=== PATIENT | female | born 1985 | race Caucasian/White ===

== ENCOUNTER 2016-10-19 17:02 | Emergency (ER) | payer BC, OTHER ==
[~2016-10-19] VITALS: Ht 162.6 cm; Wt 77.1 kg
[~2016-10-19 17:02] MED LIST: PHENERGAN 25 MG25 M1 PO; VICODIN 5-5001 EACH PO
[2016-10-19 17:32] LABS: URINE BILIRUBIN NEGATIVE (Negative); URINE BLOOD NEGATIVE (Negative); URINE COLOR YELLOW; URINE GLUCOSE-RANDOM* NEGATIVE (Negative); URINE KETONES NEGATIVE (Negative); URINE NITRITE NEGATIVE (Negative); URINE PROTEIN (DIPSTICK) NEGATIVE (Negative); URINE UROBILINOGEN 0.2 E.U./dl (0.2-1.0)
[2016-10-19 17:37] LABS: BACTERIA 1-9 Few /HPF (None Seen); SQUAMOUS 0-3 Few /LPF (0-3); URINE WBC 0-5 Rare /HPF (0-5)
[2016-10-19 17:38] LABS: CASTS None Seen /LPF (None Seen); CRYSTALS None Seen /LPF (None Seen); URINE RBC None Seen /HPF (0-2)
[2016-10-19 17:45] LABS: ABSOLUTE NEUTROPHILS 4.9 thou/uL (1.4-8.2); BASOPHILS 0.7 % (0.0-2.0); EOSINOPHILS 1.3 % (0.0-3.0); HEMATOCRIT 42.1 % (37.0-47.0); HEMOGLOBIN 14.4 gm/dL (12.0-15.0); LYMPHOCYTES 27.6 % (24.0-44.0); MCH 33.3 pg (26.0-34.0); MCHC 34.2 g/dL (28.0-37.0); MCV 97.3 fL (80.0-100.0); MONOCYTES 7.6 % (1.0-8.0); PLATELET COUNT 236 thou/uL (150-400); POLYS 62.8 % (36.0-66.0); RBC 4.33 mil/uL (4.20-5.00); RDW 12.3 % (10.5-14.5); WBC 7.8 thou/uL (4.0-11.0)
[2016-10-19 17:46] LABS: MANUAL DIFF NO
[2016-10-19 17:58] LABS: CALCIUM 9.2 mg/dL (8.5-10.1); CREATININE 0.8 mg/dL (0.6-1.0); POTASSIUM 3.8 mmol/L (3.5-5.1)
[2016-10-19 18:09] LABS: TOTAL BILIRUBIN 0.3 mg/dL (<0.1-1.0); TOTAL PROTEIN 7.7 g/dL (6.4-8.2)
[2016-10-19] MEDS ORDERED: ONDANSETRON HCL4 M2 PO (20:22)
[2016-10-19] MEDS ORDERED: MOBIC15 MG PO (20:22)
[2016-10-19 20:39] VITALS: BP 105/63
== END 2016-10-19 20:40 | disposition home or self-care (01) ==
LOC: ER 17:02
PROVIDERS: Physician Assistant
DX: K82.0 Obstruction of gallbladder (principal); F17.210 Nicotine dependence, cigarettes, uncomplicated; F10.99 Alcohol use, unspecified with unspecified alcohol-induced disorder

== ENCOUNTER → 2016-10-30 | Outpatient (CLI) | payer BC, OTHER ==
[~2016-10-30] MED LIST changes: +MOBIC15 MG PO; +ONDANSETRON HCL4 M2 PO
== END ==
LOC: NUC 10-28 10:45
DX: R10.11 Right upper quadrant pain (principal)